=== PATIENT | male | born 1980 | race Caucasian/White ===

== ENCOUNTER 2022-07-08 16:09 | Emergency (ER) | payer OTHER ==
[~2022-07-08] VITALS: Ht 170.2 cm; Wt 7.8 kg
[2022-07-08] MEDS ORDERED: SOLU-MEDROL 125MG VIAL ONE (16:14)
[2022-07-08] MEDS ORDERED: FAMOTIDINE 20MG VIAL IV ONE ×2 (16:14→16:30)
[2022-07-08] MEDS ORDERED: SOLU-MEDROL 125MG VIAL IVP ONE (16:30)
[2022-07-08 18:38] VITALS: BP 120/85
[2022-07-08] MEDS ORDERED: EPIN0.3P2 IM (18:39)
[2022-07-08] MEDS ORDERED: PRED20TA3 PO (18:39)
== END 2022-07-08 18:50 | disposition home or self-care (01) ==
LOC: EDH 16:09
DX: T78.49XA Other allergy, initial encounter (principal); X58.XXXA Exposure to other specified factors, initial encounter; T63.461A Toxic effect of venom of wasps, accidental (unintentional), initial encounter; Y92.89 Other specified places as the place of occurrence of the external cause
CPT/HCPCS: 99284; 96374; 96375; J3490; J2930